=== PATIENT | male | born 2000 | race Caucasian/White ===

== ENCOUNTER 2025-01-19 23:49 | Emergency (ER) | payer SELFPAY ==
[2025-01-19 23:55] VITALS: BP 143/88; PULSE 107; TEMP 37; O2SAT 98; BMI 29.8
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
--- OUTSIDE RECORDS SUMMARY | 2025-01-20 00:02 | XMS_ITS | Patient Health Record ---
Author Organization [facility] es Address [address] [place] [address] Care Team Providers Care Linseed Oil Order Filler Name Role Phone UNALLOCATED, [facility] PROVIDER Primary Care Provider [phone] Aydin Leija Unavailable [phone] Allergies No Known Allergies Reason For Referral No Information Social History Tobacco Use: Social History Observation Description Date Details (start date - stop date) Unknown Tobacco Screen: Question Answer Notes Are you a: Uses tobacco in other forms Alcohol Screening: Question Answer Notes Did you have a drink contain ing alcohol in the past year? Yes How often did you have a dri nk containing alcohol in the past year? Monthly or less (1 point) Points 1 Interpretation Negative Depression Screening (PHQ-9): Question Answer Notes Little interest or pleasure in doing things Not at all Feeling down, depressed, or hopeless Not at all Trouble falling or staying asleep, or sleeping t oo much Nearly every day Feeling tired or having little energy Nearly gia ry day Poor appetite or overeating Not at all Feeling bad about yourself-o r that you are a failure or have let yourself or your family down Not at all Trouble concentrating on thi ngs, such as reading the newspaper or watching television Not at all Moving or speaking so slowly that other people could have noticed. Or the opposite being so fidgety or restless that you have been moving around a lot more than usual Not at all Thoughts that you would be b lisa off , or of hurting yourself in some way Not at all Total Score 6 Intepretation Mild Depression Plan Of Treatment No Information Insurance Providers Payer Name Payer Address Payer Phone Subscriber Number Group Number Insured Name Patient Relationship to Insured Coverage Start Date Coverage End Date [employer] [place] [address] [place] [address] [id number] VIGNESH DUQUE Self - patient is the insured 3 Wrap [employer] [address] [place] [address] [phone] [id number] VIGNESH DUQUE Self - patient is the insured 3 zCARESOU RCE-term ed 22 [address] [place] [address] [id number] VIGNESH DUQUE Self - patient is the insured 3 3 zMEDICAI D CFC after [employer] CE-terme d 22 [address] [place] [address] [phone] [id number] VIGNESH DUQUE Self - patient is the insured 3 3 zDENTAL DQ [employer]-terme d 22 [address] [facility] [place] [address] [id number] VIGNESH DUQUE Self - patient is the insured 3 3 zDental MEDICAID CFC after [employer]-terme d 22 [address] [place] [address] [phone] [id number] VIGNESH DUQUE Self - patient is the insured 3 3 Dental [employer] [place] [address] [facility] [place] [address] [id number] VIGNESH DUQUE Self - patient is the insured 3 Dental Wrap CFC [employer] [address] [place] [address] [phone] [id number] HAY, DAMIONLEE Self - patient is the insured 3 Medical (General) History Surgical History Surgery Date(Month/Year) Screw in keft wrist
--- OUTSIDE RECORDS SUMMARY | 2025-01-20 00:02 | XMS_ITS | Clinical Summary ---
Author Organization [facility] Address [address] [place] [address] Care Team Providers Care Pluck Separator Name Role Phone Unavailable Primary Care Provider Unavailabl e Social History Tobacco Use Types Packs/Day Years Used Date Smoking Tobacco: Never Assessed Sex and Gender Information Value Date Recorded Sex Assigned at Not on file Legal Sex Male 12:14 AM EDT Gender Identity Not on file Sexual Orientation Not on file Last Filed Vital Signs Vital Sign Reading Time Taken Comments Blood Pressure - - Pulse - - Temperature - - Respiratory Rate - - Oxygen Saturation - - Inhaled Oxygen Concentration - - Weight 113 kg (250 lb) 10/15/2018 9:00 AM EDT Height 182.9 cm (6') 10/15/2018 9:00 AM EDT Body Mass Index 33.91 10/15/2018 9:00 AM EDT Plan of Treatment Not on file
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
[2025-01-20 00:46] VITALS: BP 125/83; PULSE 99; O2SAT 99
--- NOTE | 2025-01-20 02:02 | PC.NURSE ---
this patient sleeping and the police booking officer sitting on a chair outside room 11(door open)
[2025-01-20 05:02] VITALS: BP 148/72; PULSE 73; TEMP 36.8; O2SAT 98
--- NOTE | 2025-01-20 05:06 | PC.NURSE ---
i gave this patient verbal discharge orders and I gave these discharge orders to the [place] chief financial officer and this patient voices yes to understanding these. at time of discharge this patient voices no concerns, needs and this patient shows no signs of distress
== END 2025-01-20 05:05 ==
PROVIDERS: Emergency Provider Emergency Medicine
DX: S00.83XA Contusion of other part of head, initial encounter (principal); S20.212A Contusion of left front wall of thorax, initial encounter; Y04.0XXA Assault by unarmed brawl or fight, initial encounter
CPT/HCPCS: 70450; 70486; 71045; 99284